=== PATIENT | female | born 1995 | race Caucasian/White ===

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

== ENCOUNTER 2017-02-26 22:38 | Emergency (ER) | payer MEDICAID ==
[2017-02-26 22:49] VITALS: TEMP 97.7
--- NOTE | 2017-02-26 23:01 | EDPHY ---
H & P Time Seen by Provider: 02/26/17 22:50 HPI/ROS: HPI Lower abdominal pain. 21-year-old female by private vehicle. She complains of left lower quadrant intermittent abdominal discomfort which she describes as sharp and achy ongoing for 1 week. She states that her mother has a history of diverticulitis and she is concerned that she may have diverticulitis. She also describes having some burning on urination. Last menses ended 3 days ago. Denies any vaginal discharge or continued vaginal bleeding. She has not had a fever. She has had intermittent mild nausea. No vomiting. No diarrhea. Last bowel movement was yesterday. Denies bloody or melenic stool. ROS: Constitutional: No fever, no chills. No weakness. Eyes: No discharge. No changes in vision. ENT: No sore throat. No nasal congestion or rhinorrhea. Respiratory: No cough. No shortness of breath. Cardiac: No chest pain, no palpitations. Gastrointestinal: As above, no vomiting, no diarrhea. Genitourinary: No hematuria. As above, no increased frequency with urination. Musculoskeletal: No back pain. No neck pain. No myalgias or arthralgias. Skin: No rashes. Neurological: No headache. No focal weakness or altered sensation. Past medical history: Self mutilation. Previous visits for STI related complaints. Social history: Here by herself. Lives with her mother. Nonsmoker. Physical Exam: General Appearance: Alert, no distress. This patient is responding to questions appropriately and in full sentences. This patient appears well- hydrated and well-nourished. Eyes: Pupils equal and round no pallor or injection. No lid edema, erythema or injection. Respiratory: There are no retractions, lungs are clear to auscultation with good air movement bilaterally. Cardiovascular: Regular rate and rhythm. No murmur. Gastrointestinal: Abdomen is soft with vague and mild if any lower abdominal tenderness on palpation, bowel sounds normal. No focal tenderness at McBurney' s point. No Celis sign. Neurological: Motor sensory function is grossly intact. Cranial nerves are normal. Gait is normal. Skin: Warm and dry, no rashes. Musculoskeletal: Extremities are symmetrical. All joints range without pain or impingement. Psychiatric: No agitation. No depression. Database: EKG: Imaging: Pelvic ultrasound: Significant for a 16 cm left ovarian cyst. Doppler flow to the left ovary is severely limited secondary to lack of normal ovarian tissue. Clinically she does not present as a torsion. The right ovary is well visualized and has normal flow. No other significant pathology. Results were discussed with Dr. Hilario Chan. Procedures: Emergency department course: Vital signs reviewed and are normal. She declined placement of an IV but did allow for a blood draw. She has provided us a urine specimen. She declines pain medication. 12:30 a.m., patient re-evaluated. Resting comfortably at this time. She is not in any significant pain. Results of her ultrasound and diagnosis of a large left-sided ovarian cyst discussed with her. She does not currently have an OBGYN. 12:35 a.m., Raquel Penn OBGYN paged. 12:45 a.m., spoke with on-call OBGYN Raquel Penn. Results of Doppler ultrasound discussed in detail with her. Dr. Penn does not feel the patient needs to be admitted for emergent management at this time. She will see this patient in her office later this morning. 12:50 a.m., patient re-evaluated. Resting comfortably at this time. Repeat abdominal exam she is soft, nontender nondistended. I discussed my conversation with Dr. Penn and the need for close follow-up later today for re- evaluation by the OBGYN service. I also discussed the importance of her returning to the emergency department immediately should her pain worsen. She understands this fully in my professional opinion. She will be able to return to the emergency department easily if needed. Otherwise she will follow up with Dr. Penn or 1 of her partners with the OBGYN service later today. She feels comfortable going home at this time. She was discharged home in good condition. Differential Diagnosis: The differential diagnosis on this patient includes but is not limited to ovarian cyst. Ectopic , pelvic inflammatory disease, urinary tract infection, ovarian torsion, diverticulitis, volvulus, other acute surgical emergent condition unlikely. This represents a partial list of diagnoses considered. These considerations are based on history, physical exam, past history, reassessment and diagnostic testing. Smoking Status: Never smoked Constitutional: Initial Vital Signs Temperature (C) 36.5 C 02/26/17 22:44 Heart Rate 72 02/26/17 22:44 Respiratory Rate 16 02/26/17 22:44 Blood Pressure 119/65 02/26/17 22:44 O2 Sat (%) 99 02/26/17 22:44 O2 Delivery Mode Room Air Allergies/Adverse Reactions: amoxicillin [Amoxicillin] Allergy (Intermediate, Verified 02/26/17 22:43) Rash Penicillins Allergy (Intermediate, Verified 02/26/17 22:43) Rash topiramate [From Topamax] Allergy (Intermediate, Verified 02/26/17 22:43) chest tightness Home Medications: Medication Instructions Recorded NK [No Known Home Meds] 02/26/17 Medical Decision Making - Diagnostics Imaging Results: Imaging Impressions Pelvic/Renal Ultrasound 02/26/17 22:51 Impression: 16 cm simple appearing left adnexal cyst, likely within the left ovary, with no normal left ovary identified. For a cyst of this size, surgical consultation or MRI is recommended. Findings discussed with Ava Hermosillo MD 02/27/2017 at 0:27. - Data Points Laboratory Results: Laboratory Results 02/26/17 22:57 02/26/17 22:57 02/26/17 02/26/17 02/26/17 22:57 22:57 22:57 WBC RBC Hgb Hct MCV MCH MCHC RDW Plt Count MPV Neut % (Auto) Lymph % (Auto) Turner % (Auto) Eos % (Auto) Baso % (Auto) Nucleat RBC Rel Count Absolute Neuts (auto) Absolute Lymphs (auto) Absolute Monos (auto) Absolute Eos (auto) Absolute Basos (auto) Absolute Nucleated RBC Immature Gran % Immature Gran # Sodium Potassium Chloride Carbon Dioxide Anion Gap BUN Creatinine Estimated GFR Glucose Calcium Beta HCG, Qual Cancelled Urine Color YELLOW Urine Appearance CLEAR Urine pH 7.0 (5.0-7.5) Ur Specific [place] 1.010 (1.002-1.030) Urine Protein NEGATIVE (NEGATIVE) Urine Ketones NEGATIVE (NEGATIVE) Urine Blood NEGATIVE (NEGATIVE) Urine Nitrate NEGATIVE (NEGATIVE) Urine Bilirubin NEGATIVE (NEGATIVE) Urine Urobilinogen 0.2 EU EU (0.2-1.0) Ur Leukocyte Esterase NEGATIVE (NEGATIVE) Urine RBC 1-3 /hpf /hpf (0-3) Urine WBC 1-3 /hpf /hpf (0-3) Ur Epithelial Cells 1+ /lpf /lpf (NONE-1+) Urine Bacteria TRACE /hpf H /hpf (NONE SEEN) Urine Glucose NEGATIVE (NEGATIVE) Urine Test NEGATIVE 02/26/17 02/26/17 22:57 22:57 WBC 7.02 10^3/uL 10^3/uL (3.80-9.50) RBC 5.57 10^6/uL H 10^6/uL (4.18-5.33) Hgb 16.3 g/dL g/dL (12.6-16.3) Hct 48.0 % H % (38.0-47.0) MCV 86.2 fL fL (81.5-99.8) MCH 29.3 pg pg (27.9-34.1) MCHC 34.0 g/dL g/dL (32.4-36.7) RDW 13.0 % % (11.5-15.2) Plt Count 305 10^3/uL 10^3/uL (150-400) MPV 9.9 fL fL (8.7-11.7) Neut % (Auto) 51.4 % % (39.3-74.2) Lymph % (Auto) 40.0 % % (15.0-45.0) Turner % (Auto) 7.5 % % (4.5-13.0) Eos % (Auto) 0.7 % % (0.6-7.6) Baso % (Auto) 0.1 % L % (0.3-1.7) Nucleat RBC Rel Count 0.0 % % (0.0-0.2) Absolute Neuts (auto) 3.60 10^3/uL 10^3/uL (1.70-6.50) Absolute Lymphs (auto) 2.81 10^3/uL 10^3/uL (1.00-3.00) Absolute Monos (auto) 0.53 10^3/uL 10^3/uL (0.30-0.80) Absolute Eos (auto) 0.05 10^3/uL 10^3/uL (0.03-0.40) Absolute Basos (auto) 0.01 10^3/uL L 10^3/uL (0.02-0.10) Absolute Nucleated RBC 0.00 10^3/uL 10^3/uL (0-0.01) Immature Gran % 0.3 % % (0.0-1.1) Immature Gran # 0.02 10^3/uL 10^3/uL (0.00-0.10) Sodium 140 mEq/L mEq/L (134-144) Potassium 4.7 mEq/L mEq/L (3.5-5.2) Chloride 103 mEq/L mEq/L (97-110) Carbon Dioxide 20 mEq/l L mEq/l (22-31) Anion Gap 17 mEq/L H mEq/L (8-16) BUN 13 mg/dL mg/dL (7-23) Creatinine 0.8 mg/dL mg/dL (0.6-1.0) Estimated GFR > 60 Glucose 80 mg/dL mg/dL (70-100) Calcium 9.6 mg/dL mg/dL (8.5-10.4) Beta HCG, Qual Urine Color Urine Appearance Urine pH Ur Specific [place] Urine Protein Urine Ketones Urine Blood Urine Nitrate Urine Bilirubin Urine Urobilinogen Ur Leukocyte Esterase Urine RBC Urine WBC Ur Epithelial Cells Urine Bacteria Urine Glucose Urine Test Departure - Departure Disposition: Home, Routine, Self-Care Clinical Impression: Lower abdominal pain, Left ovarian cyst Condition: Good Instructions: Ovarian Cyst (ED), Abdominal Pain (ED) Additional Instructions: Read and follow provided instructions. Follow-up with Dr. Raquel Penn or 1 of her partners later today for re- evaluation in their office as discussed. Call their office at 8:30 a.m. to 9: 00 a.m. this morning for appointment time. It is very important you do this. Ibuprofen dosin mg every 6 hours with meals for the next 3 days only. Take only as needed for pain. Most important, return to the emergency department immediately for worsening pain, fever, vomiting, or other serious concerns. Go to the emergency department at the [facility] which is on the corner of a [facility] and [facility] in [place]. Referrals: Raquel Penn DO [Doctor of Osteopathy] - As per Instructions
[2017-02-26 23:19] LABS: % IMMATURE GRANULYOCYTES 0.3 % (0.0-1.1); ABSOLUTE IMMATURE GRANULOCYTES 0.02 10^3/uL (0.00-0.10); ADD DIFF? NO; ADD MORPH? NO; ADD SCAN? NO; ATYPICAL LYMPHOCYTE FLAG 20 (0-99); FRAGMENT RBC FLAG 0 (0-99); HEMOGLOBIN 16.3 g/dL (12.6-16.3); LEFT SHIFT FLG 0 (0-99); LIPEMIA HEMOLYSIS FLAG 90 (0-99); MEAN CELL HEMOGLOBIN 29.3 pg (27.9-34.1); MEAN CELL VOLUME 86.2 fL (81.5-99.8); MEAN PLATELET VOLUME 9.9 fL (8.7-11.7); PLATELET CLUMPS FLAG 0 (0-99); PLATELET COUNT 305 10^3/uL (150-400); RED BLOOD CELL COUNT 5.57 10^6/uL (4.18-5.33)
[2017-02-26 23:21] LABS: COLOR YELLOW; LEUKOCYTE ESTERASE,URINE NEGATIVE (NEGATIVE); NITRITE,URINE NEGATIVE (NEGATIVE)
[2017-02-26 23:31] LABS: BACTERIA TRACE /hpf (NONE SEEN)
[2017-02-26 23:42] LABS: ANION GAP 17 mEq/L (8-16); CALCIUM 9.6 mg/dL (8.5-10.4); CARBON DIOXIDE 20 mEq/l (22-31); CHLORIDE 103 mEq/L (97-110); CREATININE 0.8 mg/dL (0.6-1.0); GLOMERULAR FILTRATION RATE > 60; GLUCOSE 80 mg/dL (70-100); POTASSIUM 4.7 mEq/L (3.5-5.2); SODIUM 140 mEq/L (134-144)
[2017-02-27 01:03] VITALS: BP 114/75; PULSE 78; RESP 18; O2SAT 99
== END 2017-02-27 01:00 | disposition home or self-care (01) ==
LOC: CED 22:38
DX: N83.202 Unspecified ovarian cyst, left side (principal)
CPT/HCPCS: 76856-PO; 80048-PO; 81003-PO; 81015-PO; 81025-PO; 85025-PO

== ENCOUNTER 2017-03-03 06:26 | Day surgery (SDC) | payer MEDICAID ==
--- NOTE | 2017-02-27 17:18 | GHP ---
[f rep st] HISTORY AND PHYSICAL DATE OF ADMISSION: 03/03/2017 ADMISSION DIAGNOSES: 1. Left lower quadrant abdominal pelvic pain. 2. Large simple left adnexal cyst. HISTORY OF PRESENT ILLNESS: The patient is a 21-year-old nulliparous with last menstrual period 02/20/2017, who presents to the ER for followup secondary to a large ovarian cyst. The patient was seen in the emergency room 02/26/17 secondary to intermittent left lower quadrant discomfort that was described as sharp and achy for 1-week duration. Also notes urinary symptoms of frequency and urgency. She states cycles are regular. Denies any abnormal bleeding. No fevers, chills, or vomiting. She does have mild nausea, but has had this for the past year associated with her anxiety, and is currently taking no medications. She does see a therapist. The patient presents to my office today on the . She states the pain is improved. She is not having any discomfort at this time. The patient was told to follow up with LEATHER ETCHER. We discussed, after reviewing records, and the examining patient, proceeding with surgical management secondary to size of this cyst. This can cause increased pain and possibly cause the ovary to torse or twist on itself. We will proceed with a diagnostic laparoscopy with removal of cyst and/or ovary. The patient and her parents were present, agree with the plan at this time. PAST OB HISTORY: The patient is nulliparous. PAST LEATHER ETCHER HISTORY: Age of menarche 14. Cycles are every 26-28 days for 4 days. The patient has never had a Pap smear. She is currently sexually active. She does use condoms. She has not received the Gardasil vaccine. She does have a history of sexually transmitted disease. She and her partner were treated for chlamydia in July 2016. PAST MEDICAL HISTORY: Remarkable for depression, anxiety, history of substance abuse, and mental illness. PAST SURGICAL HISTORY: Unremarkable. MEDICATIONS: None. ALLERGIES: Penicillin and Topamax. FAMILY HISTORY: Mother with hypertension, mental illness, and alcoholism. Father with mental illness and alcoholism. They are both living. SOCIAL HISTORY: The patient is a student. She is in a monogamous relationship for 3 months. She denies any tobacco use. Alcohol use one day per week. Denies any illicit drug use. Regular diet. REVIEW OF SYSTEMS: A 10-point review systems negative. Pertinent positives noted in HPI. LABORATORY DATA: WBC 7.02, H and H 16.3 and 48. Micro urine showed trace bacteria, and urine test negative. STUDIES: Ultrasound: Uterus measures 6 x 4 x 3 cm. Right ovary is normal. Left ovary is not visible; however, there is a simple-appearing cyst that measures 16 x 14 x 8 cm left adnexa, displacing the bladder inferiorly. There is Doppler flow to this left ovary. There is no free fluid. PHYSICAL EXAMINATION: VITAL SIGNS: On admission, vital signs are stable. The patient is afebrile. GENERAL: Well-nourished, well-developed female, alert and oriented x3. No apparent distress. CARDIOVASCULAR: Regular rate and rhythm. LUNGS: Clear to auscultation bilaterally. ABDOMEN: Soft, nondistended, mild tenderness to palpation in left lower quadrant. PELVIC: Deferred. EXTREMITIES: Normal to inspection without calf tenderness or edema. ASSESSMENT AND PLAN: Patient is a 21-year-old nulliparous with left lower quadrant abdominal pelvic pain, and a large simple left adnexal cyst. 1. We discussed surgery, diagnostic laparoscopy with removal of cyst and/or ovary, its limitations, n.p.o. status, and postoperative recovery. 2. Surgical consents were obtained. 3. Discussed risks, benefits, alternatives of the procedure including but not limited to bleeding, infection, and damage to surrounding organs. 4. Antibiotics electrical construction project manager to OR. Patient is allergic to penicillin. We will treat with clindamycin. 5. SCDs for deep venous thrombosis prophylaxis. /[id number]/MODL MTDD
[2017-03-03] MEDS ORDERED: BUPIVACAINE 0.5% 30 ML SDV ONE (08:11)
[2017-03-03] MEDS ORDERED: SILVER NITRATE APPLICATOR 1 APPL TP ONE (08:12)
[2017-03-03] MEDS ORDERED: LR 1,000 ML IV SCH (08:19)
[2017-03-03] MEDS ORDERED: CLINDAMYCIN 900 MG/DEXTROSE 50 ML IV ONE (08:19)
[2017-03-03] MEDS ORDERED: CLINDAMYCIN 900 MG/DEXTROSE/50 ML BAG IV ONE (08:20)
[2017-03-03] MEDS ORDERED: LR 1,000 ML IV ONE (08:21)
[2017-03-03] MEDS ORDERED: MIDAZOLAM 2 MG/2 ML VIAL IVP ONE (08:39)
--- NOTE | 2017-03-03 08:39 | PDANEPAE ---
ANE History of Present Illness laparoscopy ANE Past Medical History - Cardiovascular History Hx Hypertension: No Hx Arrhythmias: No Hx Chest Pain: No Hx Coronary Artery / Peripheral Vascular Disease: No Hx CHF / Valvular Disease: No Hx Palpitations: Yes - Pulmonary History Hx COPD: No Hx Asthma/Reactive Airway Disease: No Hx Recent Upper Respiratory Infection: No Hx Oxygen in Use at Home: No Hx Sleep Apnea: No - Endocrine History Hx Diabetes: No - Renal History Hx Renal Disorders: No - Liver History Hx Hepatic Disorders: No - GI History Gastrointestinal History Comment: occasional heartburn - Surgical History Prior Surgeries: none ANE Review of Systems Review of Systems: - Exercise capacity METS (RN): 4 METS ANE Patient History - Allergies Allergies/Adverse Reactions: amoxicillin [Amoxicillin] Allergy (Intermediate, Verified 02/26/17 22:43) Rash Penicillins Allergy (Intermediate, Verified 02/26/17 22:43) Rash topiramate [From Topamax] Allergy (Intermediate, Verified 02/26/17 22:43) chest tightness - Home Medications Home Medications: NK [No Known Home Meds] 02/26/17 [Last Taken Unknown] - NPO status NPO Status: no food or drink >8 hours NPO Since - Liquids (Date): 03/02/17 NPO Since - Solids (Date): 03/02/17 - Smoking Hx Smoking Status: Former smoker ANE Labs/Vital Signs - Vital Signs Blood Pressure: 118/68 Heart Rate: 68 Respiratory Rate: 16 O2 Sat (%): 96 ANE Physical Exam - Airway Mallampati Score: Class 2 Mouth exam: normal dental/mouth exam - Pulmonary Pulmonary: no respiratory distress - Cardiovascular Cardiovascular: regular rate and rhythym - ASA Status ASA Status: II ANE Anesthesia Plan Anesthesia Plan: general endotracheal anesthesia
--- NOTE | 2017-03-03 08:47 | PDHPUP ---
History & Physical Update H&P update statement: This history and physical update is based on an assessment of the patient which was completed after admission or registration (within 24 hours), but prior to the surgery/procedure. H&P update: H&P reviewed & patient examined, no change in patient's condition since H&P completed
[2017-03-03] MEDS ORDERED: ROCURONIUM 50 MG/5 ML VIAL ONE (08:58)
[2017-03-03] MEDS ORDERED: PROPOFOL 200 MG/20 ML VIAL ONE (08:58)
[2017-03-03] MEDS ORDERED: LIDOCAINE 2% 5 ML SDV ONE (08:58)
[2017-03-03] MEDS ORDERED: fentaNYL 100 MCG/2 ML INJ ONE ×2 (08:58→10:28)
[2017-03-03] MEDS ORDERED: DEXAMETHASONE 4 MG/ML VIAL ONE (08:58)
[2017-03-03] MEDS ORDERED: MIDAZOLAM 2 MG/2 ML VIAL ONE (09:21)
[2017-03-03] MEDS ORDERED: ONDANSETRON 4 MG/2 ML VIAL ONE (09:21)
[2017-03-03] MEDS ORDERED: KETOROLAC 30 MG/1 ML SDV ONE (09:21)
[2017-03-03] MEDS ORDERED: SUGAMMADEX SODIUM 200 MG/2 ML VIAL IVP ONE (09:38)
[2017-03-03] MEDS ORDERED: fentaNYL 100 MCG/2 ML INJ IVP PRN (10:48)
[2017-03-03] MEDS ORDERED: ONDANSETRON 4 MG/2 ML VIAL IVP PRN (10:48)
[2017-03-03] MEDS ORDERED: LR 500 ML IV PRN (10:48)
[2017-03-03] MEDS ORDERED: NALOXONE HCL 0.4 MG/ML INJ IVP PRN (10:48)
[2017-03-03] MEDS ORDERED: HYDROCODONE/APAP 5/325 TAB PO PRN (10:48)
[2017-03-03] MEDS ORDERED: ALBUTEROL 3 ML DEYVIAL IH PRN (10:48)
[2017-03-03] MEDS ORDERED: PROMETHAZINE HCL 25 MG/ML INJ IVP PRN (10:48)
--- NOTE | 2017-03-03 10:49 | POSTANESTH ---
Post Anesthetic Evaluation Cardiovascular Status: Normal, Stable Respiratory Status: Normal, Stable Level of Consciousness/Mental Status: Can Participate in Eval Pain Control: Adequate, Prn Tx Ordered Nausea/Vomiting Control: Adequate, Prn Tx Ordered Complications Possibly Related to Anesthesia: None Noted
--- NOTE | 2017-03-03 10:49 | POSTOPPROG ---
Post Op Note Date of Operation: 03/03/17 Surgeon: Carmina Alvarado Acidizer: Raquel Penn Anesthesiologist: Dr. Mancia Anesthesia: GET(General Endotracheal) Pre-op Diagnosis: LLQ pain; Large simple ovarian cyst Post-op Diagnosis: LLQ pain; Large simple ovarian cyst Indication: 21 y/o nullip with LLQ pain and on u/s a large 16 cm L adnexal cyst Procedure: Dx Laparoscopy with drainage of cyst; L cystectomy Findings: Uterus, R tube, ovary wnl; A 16 cm simple L ov. cyst; 500cc serous fluid dr Strickland/Gabriel present in the surg proc area at time of surgery?: No Depth: Superfical (Skin SQ) EBL: Minimal (10 cc) Total fluids administered: 700 cc LR UO: 75 cc clear urine at end of proc. Complications: None Specimen(s): L ovarian cyst wall and fluid for cytology
[2017-03-03] MEDS ORDERED: HYDROCODONE/APAP 5/325 TAB ONE (11:18)
[2017-03-03 11:42] VITALS: TEMP 97
[2017-03-03 11:44] VITALS: BP 128/71; PULSE 79; RESP 14; O2SAT 98
--- NOTE | 2017-03-03 14:04 | GOP ---
[f rep st] OPERATIVE REPORT DATE OF OPERATION: 03/03/2017 SURGEON: Carmina Alvarado DO FOLDER TAPER OPERATOR: Raquel Penn DO ANESTHESIA: General endotracheal. ANESTHESIOLOGIST: Matt Mancia MD PREOPERATIVE DIAGNOSIS: 1. Left lower quadrant abdominal/pelvic pain. 2. Large left ovarian cyst. POSTOPERATIVE DIAGNOSIS: 1. Left lower quadrant abdominal/pelvic pain. 2. Large left ovarian cyst. PROCEDURE PERFORMED: Diagnostic laparoscopy with aspiration of left ovarian cyst and cystectomy. FINDINGS: Uterus, right tube and right ovary are grossly normal appearing. There was a 16 cm large simple left ovarian cyst noted. It was aspirated with about 500 cc of serous fluid, which was sent for cytology. Upper abdomen grossly normal. All specimens sent to Pathology. SPECIMENS: Left ovarian cyst wall. Cyst fluid for cytology. ESTIMATED BLOOD LOSS: 10 cc. INDICATIONS: Patient is a 21-year-old, nulliparous, who presented to the emergency room with acute onset of left lower quadrant pain. She had an ultrasound done that demonstrated a 16 x 8 cm large simple fluid-filled left adnexal cyst. Patient presented to my office the next day, and we discussed that with the size of this cyst, the pain she was having and the risk of ovarian torsion that we proceed with surgical management. We discussed proceeding with a diagnostic laparoscopy with removal of cyst and/or ovary. We discussed the risks, benefits and alternatives of the procedure including, but not limited to, bleeding, infection and damage to surrounding organs. Surgical consents were obtained. Patient understood all risks of the procedure and wants to proceed. Patient was properly counseled. DESCRIPTION OF PROCEDURE: The patient was taken to the operating room, where general anesthesia was obtained without difficulty. The patient received antibiotics, 100 mg Doxycycline orally health analytics consultant to OR. The patient was then placed in dorsal lithotomy position, prepped and draped in normal sterile fashion. Bee catheter was placed. An open-ended speculum was placed in the patient's vagina after anesthesia was found to be accurate. The anterior lip of the cervix was grasped with an Allis clamp. The uterus was then gently sounded to 7 cm. An acorn was placed up inside the uterus as a means to manipulate the uterus. We then turned our attention to the abdomen. After injecting 0.5% plain Marcaine, a supraumbilical 5 mm skin incision was made with a scalpel. Veress needle was then placed while tenting the abdominal wall. Aspiration was negative and confirmed an opening pressure of 3 mmHg. Pneumoperitoneum was obtained. The Veress needle was then removed and a 5 mm trocar was placed using the laparoscope to confirm proper placement. There was good visualization of the pelvis. After injecting more 0.5% plain Marcaine, a 5 mm skin incision was made in the left lower quadrant and another 5 mm skin incision was made in the right lower quadrant. Atraumatic trocars were placed. Patient was placed in Trendelenburg position. Pelvic findings were noted as above. At this time, using needle aspiration, the left ovarian cyst was aspirated with about 500 cc of serous fluid noted. This was sent for cytology. After the cyst collapsed, it was more manageable, and the cyst wall was then dissected out using both blunt and sharp dissection. The cyst wall was then completely removed from the left ovary and removed intact through the left 5 mm port without difficulty. We then inspected the left ovary. There was some oozing noted. We copiously irrigated the L ovary and noted the oozing areas. The LigaSure was then used for cautery and hemostasis was achieved. Rafael was placed on the inside of the ovary for further hemostasis. The pelvis was then irrigated with copious amounts of normal saline. Again, the left ovary appeared hemostatic. All instruments were removed from the abdomen. The gas was allowed to escape. The skin incisions were closed with 3-0 Vicryl and covered with Steri-Strips and a Band- Aid. We then turned our attention down below, the acorn and the Allis clamp were removed without bleeding noted. Bee catheter was removed. All sponge, lap and needle counts were correct x2. Patient tolerated the procedure well. There were no complications. The patient was then awakened, taken out of dorsal lithotomy position and sent to PACU in stable condition. FLUIDS REPLACED: 700 cc LR. URINE OUTPUT: 75 cc of clear urine at the end the procedure. /[id number]/MODL MTDD
== END 2017-03-03 12:01 | disposition home or self-care (01) ==
LOC: FSGY 06:26
PROVIDERS: ATTEND Obstetrics & Gynecology
PROC: 0U914ZX Drainage of Left Ovary, Percutaneous Endoscopic Approach, Diagnostic (ICD-10-PCS; principal; 2017-03-03 08:45)
DX: N83.292 Other ovarian cyst, left side (principal); F41.8 Other specified anxiety disorders
CPT/HCPCS: J1100; J1885; J2250; J2405; J2704; J3010